=== PATIENT | female | born 2000 | race Caucasian/White ===

== ENCOUNTER 2021-11-20 12:23 | Emergency (ER) | payer OTHER ==
[~2021-11-20] VITALS: Ht 162.6 cm; Wt 67.2 kg
[2021-11-20] MEDS ORDERED: FLUORESCEIN 1MG EYE STRIP. ONE (12:43)
[2021-11-20] MEDS ORDERED: CIPR2.5D2 OS (12:52)
[2021-11-20] MEDS ORDERED: KETO5DRO72 OS (12:52)
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
[2021-11-20 13:20] VITALS: BP 120/82
== END 2021-11-20 13:13 | disposition home or self-care (01) ==
LOC: ER 12:23
DX: S05.02XA Injury of conjunctiva and corneal abrasion without foreign body, left eye, initial encounter (principal); W50.4XXA Accidental scratch by another person, initial encounter; Y93.89 Activity, other specified; Y92.89 Other specified places as the place of occurrence of the external cause; Y99.8 Other external cause status
CPT/HCPCS: 99283

== ENCOUNTER 2022-02-04 13:37 | Emergency (ER) | payer OTHER ==
[~2022-02-04] VITALS: Ht 162.6 cm; Wt 60.9 kg
[~2022-02-04 13:37] MED LIST: CIPR2.5D2 OS; KETO5DRO72 OS
[2022-02-04 13:57] VITALS: BP 107/66
--- NOTE | 2022-02-04 14:15 | PHYS DOC ---
Past History Past Surgical History: , Tubal ligation Alcohol Use: Occasionally General Adult EDM: Chief Complaint: ABDOMINAL PAIN HPI: HPI: Patient is a 21-year-old female coming in for vaginal bleeding and lower abdominal pain. Patient states the pain is suprapubic and midline, radiates to her back. Patient is concerned because she took it at home test and it showed a faint line over the positive area. Patient states she had a tubal ligation about 2 years ago. Patient states she normally has regular menstrual cycles but has not had a cycle for about 3 months. Patient states she had dark red bleeding today. Also states that she has had breast tenderness and nausea. Review of Systems: Review of Systems: All other systems within normal limits except for as noted in the HPI Allergies: Allergies: Allergies Coded Allergies Type Severity Reaction Last Updated Verified strawberry Allergy Unknown 11/20/21 Yes Physical Exam: PE: Constitutional: Well developed, well nourished, no acute distress, non-toxic appearance. [] HENT: Normocephalic, atraumatic, bilateral external ears normal, nose normal. [] Eyes: PERRLA, conjunctiva normal, no discharge. [] Neck: No rigidity, supple, no stridor. [] Cardiovascular: Regular rate and rhythm, brisk cap refill [] Lungs & Thorax: Non labored symmetric respirations, no tachypnea or respiratory distress [] Abdomen: Soft, nondistended, lower abdominal tenderness. Skin: Warm, dry, no erythema, no rash. [] Back: Unremarkable Extremities: No deformities, range of motion grossly intact, no lower extremity edema [] Neurologic: Alert and oriented X 3, no focal deficits noted. [] Psychologic: Affect normal, judgement normal, mood normal. [] Current Patient Data: Labs: Laboratory Tests Test 02/04/22 13:06 POC Urine HCG, Qualitative hcg negative (Negative) ----- ------- RUN DATE: 02/04/22 [facility] *LIVE* PAGE 1 RUN TIME: 1436 Specimen Inquiry PATIENT: JOSE TAMAYO ACCT: [id number] LOC: ER U: [id number] AGE/SX: ROOM: RE02/04/[address]: MYLES RAY MD : 2000 BED: DIS: STATUS: REG ER TLOC: SPEC #: [id number] TANIA: 02/04/22-1413 STATUS: COMP REQ #: [id number] RECD: 02/04/22-[address]: MYLES RAY MD SOURCE: VAGINAL ENTR: 02/04/22-[address]: [facility]: W[facility] PREP COMMENTS: Has specimen been collected/obtained? Y Procedure Result WET PREP Final YEAST NONE SEEN TRICHOMONAS NONE SEEN CLUE CELLS NONE SEEN Vital Signs: Vital Signs Date Time Temp Pulse Resp B/P (MAP) Pulse Ox O2 Delivery O2 Flow Rate FiO2 02/04/22 13:57 97.5 80 16 107/66 (80) 99 Room Air EKG: EKG: [] Radiology/Procedures: Radiology/Procedures: [] Heart Score: C/O Chest Pain: No Risk Factors: Risk Factors: DM, Current or recent (<one month) smoker, HTN, HLP, family history of CAD, obesity. Risk Scores: Score 0 - 3: 2.5% MACE over next 6 weeks - Discharge Home Score 4 - 6: 20.3% MACE over next 6 weeks - Admit for Clinical Observation Score 7 - 10: 72.7% MACE over next 6 weeks - Early Invasive Strategies Course & Med Decision Making: Course & Med Decision Making Pertinent Labs and Imaging studies reviewed. (See chart for details) Work-up unremarkable. Patient states she is relieved to get her children and is declining any further work-up by CT imaging. [] Dragon Disclaimer: Dragon Disclaimer: This electronic medical record was generated, in whole or in part, using a voice recognition dictation system. Departure Departure: Impression: Primary Impression: Abdominal pain Disposition: HOME / SELF CARE / HOMELESS Condition: STABLE Referrals: KELVIN NOVA MD (PCP) Patient Instructions: Abdominal Pain (Nonspecific) MYLES RAY MD February 04, 2022 14:15
[2022-02-04 14:27] LABS: BACTERIA,URINE 0 /HPF (0-FEW); CLARITY,URINE CLOUDY; COLOR,URINE AMBER; GLUCOSE,URINE NEG (NEG); NITRITE,URINE NEG (NEG); RBC,URINE >40 /HPF (0-2); SQUAMOUS EPITHELIAL CELL,UR FEW /LPF; UROBILINOGEN,URINE 0.2 mg/dL (0.2 mg/dL); WBC,URINE OCC /HPF (0-4)
[2022-02-04 14:33] LABS: BASO # 0.1 x10^3/uL (0.0-0.2); BASO % 2 % (0-3); EOS # 0.1 x10^3/uL (0.0-0.7); EOS % 1 % (0-3); HEMATOCRIT 37.6 % (36.0-47.0); HEMOGLOBIN 12.2 g/dL (12.0-15.5); LYMPH # 2.2 x10^3/uL (1.0-4.8); LYMPH % 29 % (24-48); MEAN CORPUSCULAR HEMOGLOBIN 30 pg (25-35); MEAN CORPUSCULAR HGB CONC 33 g/dL (31-37); MEAN CORPUSCULAR VOLUME 93 fL (79-100); MONO # 0.5 x10^3/uL (0.0-1.1); MONO % 7 % (0-9); NEUT # 4.7 x10^3uL (1.8-7.7); NEUT % 62 % (31-73); PLATELET COUNT 282 x10^3/uL (140-400); RED BLOOD COUNT 4.04 x10^6/uL (3.50-5.40); RED CELL DISTRIBUTION WIDTH 15.2 % (11.5-14.5); WHITE BLOOD COUNT 7.6 x10^3/uL (4.0-11.0)
[2022-02-04 14:43] LABS: CALCIUM 9.1 mg/dL (8.5-10.1); CREATININE 0.7 mg/dL (0.6-1.0); GFR 103.7; POTASSIUM 4.1 mmol/L (3.5-5.1)
[2022-02-04 14:49] LABS: ALBUMIN 3.6 g/dL (3.4-5.0); TOTAL BILIRUBIN 0.4 mg/dL (0.2-1.0); TOTAL PROTEIN 7.3 g/dL (6.4-8.2)
[2022-02-04] MEDS ORDERED: IOHEXOL 300 MG/ML 75 ML VIAL. IV ONE (15:30)
[2022-02-06 15:08] LABS: CHLAMYDIA PROBE Negative (Negative)
== END 2022-02-04 15:59 | disposition home or self-care (01) ==
LOC: ER 13:37
DX: R10.30 Lower abdominal pain, unspecified (principal); N93.8 Other specified abnormal uterine and vaginal bleeding; N64.4 Mastodynia; Z98.890 Other specified postprocedural states; Z98.51 Tubal ligation status; Z91.018 Allergy to other foods
CPT/HCPCS: 80053; 81001; 81025; 83690; 84702; 85025; 87491; 87591; 99283; Q0111